=== PATIENT | male | born 1995 | race Caucasian/White ===

== ENCOUNTER 2022-11-02 05:08 | Emergency (ER) | payer OTHER ==
[~2022-11-02] VITALS: Ht 177.8 cm; Wt 70.3 kg
[~2022-11-02 05:08] MED LIST: NORCO 5-325 TA1 EACH PO; [UNRECOGNIZED DRUG - OTHER]
[2022-11-02] MEDS ORDERED: NAPROSYN500 MG PO (05:29)
[2022-11-02] MEDS ORDERED: CLEOCIN HCL300 MG PO (05:29)
== END 2022-11-02 05:39 | disposition home or self-care (01) ==
LOC: ED 05:08
DX: K02.9 Dental caries, unspecified (principal)

== ENCOUNTER → 2024-04-23 | Outpatient (CLI) | payer OTHER ==
[~2024-04-23] MED LIST changes: +CLEOCIN HCL300 MG PO; +NAPROSYN500 MG PO
== END | disposition home or self-care (01) ==
LOC: US 04-11 16:00
PROVIDERS: ATTEND Family Medicine
DX: N50.3 Cyst of epididymis (principal); N43.2 Other hydrocele; N50.812 Left testicular pain